=== PATIENT | male | born 1975 | race Caucasian/White ===

== ENCOUNTER 2019-02-18 18:50 | Emergency (ER) | payer BC ==
[~2019-02-18] VITALS: Ht 185.4 cm; Wt 97.5 kg
== END 2019-02-18 23:37 | disposition short-term general hospital (02) ==
LOC: ED 18:50
DX: S82.852A Displaced trimalleolar fracture of left lower leg, initial encounter for closed fracture (principal); W18.39XA Other fall on same level, initial encounter; Y93.89 Activity, other specified; Y92.89 Other specified places as the place of occurrence of the external cause; Y99.8 Other external cause status